=== PATIENT | female | born 1985 | race American Indian/Alaskan Native ===

== ENCOUNTER 2018-07-28 08:12 | Emergency (ER) | payer MEDICAID, OTHER ==
[2018-07-28] MEDS ORDERED: LIDOCAINE VISCOUS 2% PO ONE (10:34)
--- NOTE | 2018-07-28 10:39 | Emergency Department Report ---
ED ENT HPI - General Chief complaint: Earache Stated complaint: EAR INFECTION Time Seen by Provider: 07/28/18 10:34 Source: patient Mode of arrival: Ambulatory Limitations: No Limitations - History of Present Illness Initial comments: This is a 33-year-old -[place] female who presents with right ear pain upon awakening this morning. Patient states she woke out of sleep with severe pain around 0700 this morning. Patient states it feels like something is in my ear. She reports pain as 9 out of 10 on pain scale. Patient's pain she just recently moved in with the family member because she lost her job and they have roaches. She is concerned a nails is stuck in her ear. Patient denies fever, congestion, nausea or vomiting, headache. MD complaint: ear pain (right ear) -: This morning Time: 07:00 Location: R ear Severity: severe Severity scale (0 -10): 9 Quality: aching Consistency: constant Improves with: none Worsens with: none Context- Ear: other (feel like foreign object in right ear) - Related Data Previous Rx's Medication Instructions Recorded Last Taken Type Nitrofurantoin [place]/M-Cryst 100 mg PO Q12HR #14 capsule 10/21/14 Unknown Rx [Macrobid] Ondansetron [Zofran Odt] 4 mg PO Q8HR PRN #15 tab.rapdis 10/21/14 Unknown Rx [id number]/Iron [place]/Folic/Dha 1 each PO DAILY #30 combo..pkg 10/21/14 Unknown Rx [ Dha+Complete ] Ciprofloxacin/Hydrocortisone 10 ml AD BID 7 Days #1 bottle 07/28/18 Unknown Rx [Ciprofloxacin HC OTIC] Allergies Allergy/AdvReac Type Severity Reaction Status Date / Time amoxicillin [Amoxicillin] AdvReac Unknown Unknown Verified 10/16/13 06:04 ED Dental HPI - General Chief complaint: Earache Stated complaint: EAR INFECTION Time Seen by Provider: 07/28/18 10:34 Source: patient Mode of arrival: Ambulatory Limitations: No Limitations - Related Data Previous Rx's Medication Instructions Recorded Last Taken Type Nitrofurantoin [place]/M-Cryst 100 mg PO Q12HR #14 capsule 10/21/14 Unknown Rx [Macrobid] Ondansetron [Zofran Odt] 4 mg PO Q8HR PRN #15 tab.rapdis 10/21/14 Unknown Rx [id number]/Iron Venus/Folic/Dha 1 each PO DAILY #30 combo..pkg 10/21/14 Unknown Rx [ Dha+Complete ] Ciprofloxacin/Hydrocortisone 10 ml AD BID 7 Days #1 bottle 07/28/18 Unknown Rx [Ciprofloxacin HC OTIC] Allergies Allergy/AdvReac Type Severity Reaction Status Date / Time amoxicillin [Amoxicillin] AdvReac Unknown Unknown Verified 10/16/13 06:04 ED Review of Systems ROS: Stated complaint: EAR INFECTION Other details as noted in HPI ENT: ear pain (right ear). denies: throat pain, dental pain Respiratory: denies: cough, shortness of breath, wheezing Cardiovascular: denies: chest pain, palpitations Gastrointestinal: denies: abdominal pain, nausea, diarrhea Skin: denies: rash, lesions Neurological: denies: headache, weakness, paresthesias Psychiatric: denies: anxiety, depression ED Past Medical Hx - Past Medical History Previous Medical History?: No Hx Hypertension: No Hx Congestive Heart Failure: No Hx Diabetes: No Hx Deep Vein Thrombosis: No Hx Renal Disease: No Hx Sickle Cell Disease: No Hx Seizures: No Hx Asthma: No Hx COPD: No Hx HIV: No - Surgical History Past Surgical History?: No - Social History Smoking Status: Never Smoker Substance Use Type: None - Medications Home Medications: Home Medications Medication Instructions Recorded Confirmed Last Taken Type Nitrofurantoin [place]/M-Cryst 100 mg PO Q12HR #14 capsule 10/21/14 Unknown Rx [Macrobid] Ondansetron [Zofran Odt] 4 mg PO Q8HR PRN #15 tab.rapdis 10/21/14 Unknown Rx [id number]/Iron [place]/Folic/Dha 1 each PO DAILY #30 combo..pkg 10/21/14 Unknown Rx [ Dha+Complete ] Ciprofloxacin/Hydrocortisone 10 ml AD BID 7 Days #1 bottle 07/28/18 Unknown Rx [Ciprofloxacin HC OTIC] ED Physical Exam - General Limitations: No Limitations General appearance: alert, in no apparent distress - ENT ENT exam: Absent: TM's normal bilaterally (foreign object visualized. Right ear , possible nails) - Neck Neck exam: Present: normal inspection - Respiratory Respiratory exam: Present: normal lung sounds bilaterally. Absent: respiratory distress - Cardiovascular Cardiovascular Exam: Present: regular rate, normal rhythm. Absent: systolic murmur, diastolic murmur, rubs, gallop - GI/Abdominal GI/Abdominal exam: Present: soft, normal bowel sounds - Neurological Exam Neurological exam: Present: alert, oriented X3 - Psychiatric Psychiatric exam: Present: normal affect, normal mood - Skin Skin exam: Present: warm, dry, intact, normal color. Absent: rash ED Course Vital Signs 07/28/18 08:41 Temperature 98.1 F Pulse Rate 90 Respiratory 16 Rate Blood Pressure 99/72 O2 Sat by Pulse 99 Oximetry - Foreign Body Removal Ear Location: ear canal (R) Foreign Body Suspected: insect If Insect Suspected: ear canal instilled with Foreign Body Removed: yes Foreign Body Removal Technique: forceps (alligator forceps and irrigation with normal saline) Tympanic Membrane Intact: Yes Patient Tolerated Procedure: well Complications: none ED Medical Decision Making - Medical Decision Making Patient was examined by me in the emergency room. Vitals are normal and patient is in no acute distress. Physical findings susceptible for foreign body of right ear. Foreign object removed, review note. There is redness to the ear canal, TM intact. Start ciprodex for otitis externa. Plan discussed with patient to discharge home and treat outpatient. Patient discharged home in stable condition. Follow up with PCP in 2-3 days. Critical care attestation.: If time is entered above; I have spent that time in minutes in the direct care of this critically ill patient, excluding procedure time. ED Disposition Clinical Impression: Otalgia of right ear Ear foreign body Qualifiers: Encounter type: initial encounter Laterality: right Qualified Code(s): T16.1XXA - Foreign body in right ear, initial encounter Otitis externa of right ear Qualifiers: Otitis externa type: diffuse Chronicity: acute Qualified Code(s): H60.311 - Diffuse otitis externa, right ear Disposition: DC-01 TO HOME OR SELFCARE Is pt being admited?: No Does the pt Need Aspirin: No Condition: Stable Instructions: Otitis Externa (ED), Eye Foreign Body (ED) Additional Instructions: Give tylenol or ibuprofen for pain every 6-8 hours. Take antibiotics as prescribed to avoid recurrence of the ear infection. Avoid high altitudes, may worsen the pain during ear infection. If symptoms do not improve within 2 to 3 days, then follow up with primary care provider. Prescriptions: Ciprofloxacin/Hydrocortisone [Ciprofloxacin HC OTIC] 10 ml AD BID 7 Days #1 bottle Referrals: DALLIN BARRIENTOS [employer] [Primary Care Provider] - 3-5 Days Time of Disposition: 11:13 Print Language: WELSH
[2018-07-28 11:28] VITALS: BP 111/66
== END 2018-07-28 11:28 | disposition home or self-care (01) ==
LOC: ED 08:12
DX: T16.1XXA Foreign body in right ear, initial encounter (principal); H60.91 Unspecified otitis externa, right ear; Z88.1 Allergy status to other antibiotic agents; X58.XXXA Exposure to other specified factors, initial encounter; Y93.89 Activity, other specified; Y92.89 Other specified places as the place of occurrence of the external cause; Y99.8 Other external cause status
CPT/HCPCS: 99282

== ENCOUNTER 2019-02-02 22:07 | Outpatient (CLI) | payer OTHER ==
[2019-02-02] MEDS ORDERED: LACTATED RINGERS 500 ML IV ONE (22:23)
[2019-02-02 22:27] VITALS: BP 101/56
== END 2019-02-02 23:43 | disposition home or self-care (01) ==
LOC: TRG 22:07
PROVIDERS: ATTEND Obstetrics & Gynecology
DX: O26.892 Other specified pregnancy related conditions, second trimester (principal); R10.33 Periumbilical pain; M54.9 Dorsalgia, unspecified; Z3A.24 24 weeks gestation of pregnancy
CPT/HCPCS: 59025

== ENCOUNTER 2021-06-26 22:05 | Outpatient (CLI) | payer OTHER ==
[2021-06-26] MEDS ORDERED: LACTATED RINGERS 1,000 ML ONE (22:47)
[2021-06-26] MEDS ORDERED: LACTATED RINGERS 500 ML IV ONE (23:19)
[2021-06-26 23:54] LABS: Bilirubin,Urine NEG (Negative); Blood,Urine NEG (Negative); Color,Urine Yellow (Yellow); Protein,Urine <15 mg/dL mg/dL (Negative); RBC,Urine < 1.0 /HPF (0.0-6.0); Urobilinogen,Urine < 2.0 mg/dL (<2.0)
[2021-06-26] MEDS ORDERED: ACETAMINOPHEN 500 MG TAB PO ONE (23:55)
[2021-06-27 02:24] VITALS: BP 118/67
--- NOTE | 2021-06-27 02:37 | Event Note ---
Date: 06/27/21 (Previous , abdominal pain) Pt is a 35 y.o. @ 35.1 wks who presented to triage via EMS with c/o abdominal pain that may be contractions. States that the pain has been going on for the last few days, but became intense tonight. She has had X4 (2013,2015,201) all term, and a @ 32 wks d/t an "emergency." Cervical exam closed/thick.OOP during triage admission. She had a category 1 monitor strip throughout her triage stay. Some irregular contractions noted. Pt had IV fluid and by the end of her triage stay, stated that she felt better. Pt is to follow up with her primary OB office upon discharge. Pt was discharged in good condition.
== END 2021-06-27 02:42 | disposition home or self-care (01) ==
LOC: TRG 22:05 → APU 22:07 → TRG 06-27 02:42
PROVIDERS: ATTEND Obstetrics & Gynecology
DX: Z34.93 Encounter for supervision of normal pregnancy, unspecified, third trimester (principal); Z3A.35 35 weeks gestation of pregnancy
CPT/HCPCS: 59025; 81001